=== PATIENT | female | born 1990 | race Caucasian/White ===

== ENCOUNTER → 2017-02-18 | Outpatient (CLI) | payer OTHER ==
[~2017-02-18] MED LIST: CIPRO500 MG PO; Motrin,Rufen800 MG PO; ZOFRAN ODT4 MG SL
[2017-02-18 12:56] LABS: HEMATOCRIT 43.8 % (37.0-47.0); HEMOGLOBIN 14.4 g/dl (12.0-16.0); MEAN CELL VOLUME 84.1 fl (81.0-99.0); MEAN CORPUSCULAR HGB 27.6 pg (27.0-31.0); MEAN CORPUSCULAR HGB CONC 32.9 g/dl (33.0-37.0); RED BLOOD COUNT 5.21 10*6/uL (4.10-5.10); RED CELL DISTRI WIDTH 12.7 % (0-14.5); WHITE BLOOD COUNT 5.3 10*3/uL (4.8-10.8)
[2017-02-18 13:08] LABS: ALBUMIN 3.5 gm/dl (3.1-4.5); ALKALINE PHOSPHATASE 76 U/L (45-117); BILIRUBIN, TOTAL 0.7 mg/dl (0.2-1.0); BUN 12 mg/dl (7-24); CARBON DIOXIDE 30 mmol/L (21-32); CHLORIDE 102 mmol/L (98-107); CHOLESTEROL 233 mg/dL (<200); EST GLOM FILT AFRICAN AMERICAN > 60 ml/min; GLUCOSE 81 mg/dL (65-99); HDL CHOLESTEROL 58 mg/dl (40-60); LDL CHOLESTEROL 130 mg/dL (9-159); POTASSIUM 4.3 mmol/L (3.5-5.1); SGOT/AST 20 IU/L (3-35); SGPT/ALT 36 U/L (12-78); SODIUM 140 mmol/L (136-145); TOTAL PROTEIN 7.4 gm/dL (6.4-8.2); TRIGLYCERIDES 224 mg/dl (<150); VLDL CHOLESTEROL 45 mg/dL (6-40)
[2017-02-20 06:35] LABS: TESTOSTERONE FREE, (DIRECT) 4.4 pg/mL (0.0-4.2)
== END | disposition home or self-care (01) ==
LOC: LAB 12:04
PROVIDERS: Family Medicine
DX: E28.2 Polycystic ovarian syndrome (principal); R53.83 Other fatigue; E55.9 Vitamin D deficiency, unspecified; E66.9 Obesity, unspecified